=== PATIENT | female | born 1945 | race African-American/Black ===

== ENCOUNTER 2024-03-02 09:20 | Emergency (ER) | payer OTHER ==
[~2024-03-02] VITALS: Ht 152.4 cm; Wt 72.6 kg
[2024-03-02] MEDS ORDERED: PANTOPRAZOLE 40 MG VIAL ONE (09:44)
[2024-03-02] MEDS ORDERED: PIPERACI/TAZO 3.375GM/D5W 50ML PB IV ONE (09:44)
[2024-03-02] MEDS: IV NS 0.9% 1,000 ML BAG IV ONE (09:45)
[2024-03-02] MEDS: PIPERACILLIN /TAZOBACTAM 3.375 G in IV D5W 50 ML IV ONE (09:46)
[2024-03-02] MEDS: PANTOPRAZOLE 40 MG VIAL IV ONE (09:49)
[2024-03-02 09:58] LABS: BASOPHILS # (AUTO) 0.1 K/uL (0.0-0.2); HEMATOCRIT 37 % (33-45); HEMOGLOBIN 11.9 g/dL (11.5-14.8); LYMPHOCYTES # (AUTO) 0.7 K/uL (0.8-4.8); LYMPHOCYTES % (AUTO) 5.8 % (20.0-44.0); MEAN CORPUSCULAR HEMOGLOBIN 28 PG (26.0-33.0); MEAN CORPUSCULAR HGB CONC 32 g/dl (31.0-36.0); MEAN CORPUSCULAR VOLUME 87 fL (82-100); MONOCYTES # (AUTO) 0.6 K/uL (0.1-1.30); MONOCYTES % (AUTO) 4.8 % (2.0-12.0); NEUTROPHILS # (AUTO) 11.2 K/uL (1.8-8.9); NEUTROPHILS % (AUTO) 88.4 % (43.0-81.0); PLATELET COUNT (AUTO) 379 K/uL (150-450); RED BLOOD CELL COUNT(AUTO) 4.27 MIL/uL (4.0-5.2); RED CELL DISTRIBUTION WIDTH 14.9 % (11.5-15.0); WHITE BLOOD COUNT (AUTO) 12.7 K/uL (4.3-11.0)
[2024-03-02 10:11] LABS: INR 1.08 (0.91-1.10); PARTIAL THROMBOPLASTIN TIME 26.8 SEC (24.3-34.3); PROTHROMBIN TIME 11.4 SECS (9.2-11.1)
[2024-03-02 10:25] LABS: ALANINE AMINOTRANSFERASE 19 U/L (12-78); ALBUMIN 3.9 g/dL (3.4-5.0); ALKALINE PHOSPHATASE 87 U/L (46-116); ASPARTATE AMINOTRANSFERASE 18 U/L (15-37); BILIRUBIN,DIRECT 0.2 mg/dL (0.0-0.2); BILIRUBIN,TOTAL 0.5 mg/dL (0.2-1.0); CARBON DIOXIDE 24 mmol/L (21-32); CHLORIDE 94 mmol/L (98-107); CREATININE 1.5 mg/dL (0.6-1.3); GLUCOSE 202 mg/dL (74-106); LACTIC ACID 3.1 mmol/L (0.4-2.0); POTASSIUM 2.9 mmol/L (3.5-5.1); SODIUM SERUM 133 mmol/L (136-145); TOTAL PROTEIN, SERUM 8.6 g/dL (6.4-8.2); UREA NITROGEN, BLOOD 18 mg/dL (7-18)
[2024-03-02 10:42] LABS: CALCIUM, SERUM 9.7 mg/dL (8.5-10.1)
[2024-03-02] MEDS ORDERED: Magnesium 1GM/D5W 100ML PREMIX 100 ML IV ONE (11:12)
[2024-03-02] MEDS ORDERED: POTASSIUM CL. PREMIX PERIPHER. 50 ML ONE (11:12)
[2024-03-02] MEDS: POTASSIUM CL. PREMIX PERIPHER. 50 ML IV SCH (11:13)
[2024-03-02] MEDS: Magnesium 1GM/D5W 100ML PREMIX 100 ML IV SCH (11:13)
[2024-03-02 11:54] LABS: OCCULT BLOOD STOOL POSITIVE (NEGATIVE)
[2024-03-02] MEDS ORDERED: MORPHINE SULFATE INJ 4 MG/ML DISP.SYRIN ONE (13:17)
[2024-03-02] MEDS: MORPHINE SULFATE INJ 2 MG/ML DISP.SYRIN IV ONE (13:18)
[2024-03-02 15:51] VITALS: BP 154/71; TEMP 97.9; O2SAT 99
== END 2024-03-02 15:59 | disposition short-term general hospital (02) ==
LOC: ER 09:23
DX: K52.9 Noninfective gastroenteritis and colitis, unspecified (principal); E87.6 Hypokalemia; K92.0 Hematemesis; E87.20 Acidosis, unspecified; E11.9 Type 2 diabetes mellitus without complications; E03.9 Hypothyroidism, unspecified; I11.0 Hypertensive heart disease with heart failure; I50.9 Heart failure, unspecified
CPT/HCPCS: 99285; 74176; 96365; 96375; 96367; 96368; 85025; 80048; 87040; 83605 ×2; 80076; 82272; 36415; 85730; 86850; J2270; J2543 ×2; J7060; J7030; J7040; J2470; J3480; A4223; J3475